=== PATIENT | female | born 1950 | race Caucasian/White ===

== ENCOUNTER 2021-12-14 20:04 | Emergency (ER) | payer OTHER, MEDICAID ==
[~2021-12-14] VITALS: Ht 162.6 cm; Wt 72.6 kg
[2021-12-14 20:10] VITALS: BP_SYST 122
--- NOTE | 2021-12-14 20:14 | NUR ---
PT SENT HERE FROM [facility] FOR MED EVAL FOR POSS PLACEMENT TO PSYCH FALILITY. PER EMT REPORT PT HAS BEEN HALLUCINATING AND IT INCREASINGLY GETTING WORST. NO OTHER COMPLAINS REPORTED. PMH;PSYCH,COPD,GERG, REPORTED STAGE 4 SACRAL STAGE ULCE PT AAO, NOT IN ANY DISTRESS. PENDING MD GARCAI
[2021-12-14 22:15] LABS: BASOPHILS # (AUTO) 0.1 K/uL (0.0-0.2); BASOPHILS % (AUTO) 1.8 % (0.0-2.0); EOSINOPHILS # (AUTO) 0.5 K/uL (0.0-0.4); EOSINOPHILS % (AUTO) 7.1 % (0.0-4.0); HEMATOCRIT 31.2 % (36-48); HEMOGLOBIN 10.8 g/dL (12.0-16.0); LYMPHOCYTES # (AUTO) 1.4 K/uL (1.0-5.5); LYMPHOCYTES % (AUTO) 18.7 % (20.5-51.5); MEAN CORPUSCULAR HEMOGLOBIN 32 pg (27-31); MEAN CORPUSCULAR HGB CONC 35 % (32-36); MEAN CORPUSCULAR VOLUME 93 fL (79.0-98.0); MONOCYTES # (AUTO) 0.5 K/uL (0.0-1.0); NEUTROPHILS % (AUTO) 65.4 % (40.0-70.0); PLATELET COUNT (AUTO) 374 K/uL (130-430); RED BLOOD CELL COUNT(AUTO) 3.36 MIL/uL (4.2-6.2); RED CELL DISTRIBUTION WIDTH 14.3 % (9.0-15.0); WHITE BLOOD COUNT (AUTO) 7.7 K/uL (4.8-10.8)
--- NOTE | 2021-12-14 22:18 | NUR ---
ER examining patient in EMS [facility].
[2021-12-14 22:33] LABS: ANION GAP 3 (5-15); CALCIUM 9.2 mg/dL (8.4-11.0); CHLORIDE 92 mmol/L (98-107); CREATININE 0.84 mg/dL (0.55-1.30); GLUCOSE 106 mg/dL (70-99); POTASSIUM 4.7 mmol/L (3.5-5.1); UREA NITROGEN, BLOOD 25 mg/dL (8-21)
[2021-12-14 22:39] LABS: ALANINE AMINOTRANSFERASE 20 U/L (12-78); ALBUMIN 2.9 g/dL (3.4-4.8); ASPARTATE AMINOTRANSFERASE 22 U/L (10-37); TOTAL BILIRUBIN 0.2 mg/dL (0.0-1.0)
[2021-12-14 22:42] LABS: ACETAMINOPHEN < 1 ug/mL (1-30)
[2021-12-14 22:43] LABS: ALCOHOL, BLOOD < 3 mg/dL (<10)
[2021-12-14 23:25] LABS: CHOLESTEROL 186 mg/dL (<200); HDL CHOLESTEROL 71 mg/dL (>55); LDL CHOLESTEROL 102 mg/dL (<100); TRIGLYCERIDES 77 mg/dL (30-150)
[2021-12-14] MEDS ORDERED: NACL 0.9% 1,000 ML IV ONE (23:45)
--- NOTE | 2021-12-15 00:30 | NUR ---
Patient to ER bed 5 to gown for evaluation. Side rails up. Report given to Caroline VELASCO.
--- NOTE | 2021-12-15 01:00 | NUR ---
# 20 gauge angiocath placed to RAC. Use of asceptic technique. Opsite placed over site. Blood return noted. Flushed with 10 cc of normal saline. No evidence of infiltration noted. Patient tolerated well.
--- NOTE | 2021-12-15 01:45 | NUR ---
Urine specimen collected and SENT TO LAB
[2021-12-15 02:57] LABS: BARBITURATE, URINE NEGATIVE (NEG <=200); BENZODIAZEPINE, URINE NEGATIVE (NEG <=150); CANNABINOID, URINE NEGATIVE (NEG <=50); COCAINE, URINE NEGATIVE (NEG <=150); METHAMPHETAMINES SCREEN,URINE NEGATIVE (NEG <=500); OPIATE, URINE NEGATIVE (NEG <=100); PHENCYCLIDINE SCREEN,URINE NEGATIVE (NEG <=25); UR TRICYCLIC ANTIDEPRESSANTS NEGATIVE (NEG <=300); URINE AMPHETAMINE NEGATIVE (NEG <=500); URINE METHADONE NEGATIVE (NEG <=200); URINE OXYCODONE SCREEN NEGATIVE (NEG <=100); URINE PROPOXYPHENE SCREEN NEGATIVE (NEG <=300)
[2021-12-15 04:11] LABS: BILIRUBIN,URINE NEGATIVE (NEGATIVE); CLARITY/URINE TURBID (CLEAR); COLOR,URINE YELLOW (YELLOW); GLUCOSE,URINE NEGATIVE (NEGATIVE); KETONES,URINE NEGATIVE (NEGATIVE); LEUKOCYTE ESTERASE ,URINE 3+ (NEGATIVE); NITRITE, URINE POSITIVE (NEGATIVE); PROTEIN URINE NEGATIVE (NEGATIVE); UROBILINOGEN,URINE 0.2 (0.2-1.0)
[2021-12-15 04:43] LABS: BLOOD, URINE TRACE (NEGATIVE)
[2021-12-15 04:46] LABS: BACTERIA,URINE FEW /HPF (None Seen)
[2021-12-15 04:47] LABS: MUCUS,URINE None Seen /LPF (None Seen)
[2021-12-15] MEDS ORDERED: cefTRIAXone 1 GM IVPB PREMIX 50 ML IV ONE (05:15)
[2021-12-15] MEDS ORDERED: NITR-85 PO (05:20)
--- NOTE | 2021-12-15 05:30 | NUR ---
turned & repositioned q2h. incontinence caree provided. no BM at this time. w/ eason catheter constantly draining cloudy urine. adequate output. eason care provided.
[2021-12-15 05:51] LABS: ANION GAP 2 (5-15); CHLORIDE 97 mmol/L (98-107); GLUCOSE 87 mg/dL (70-99); POTASSIUM 4.9 mmol/L (3.5-5.1); UREA NITROGEN, BLOOD 22 mg/dL (8-21)
--- NOTE | 2021-12-15 06:18 | NUR ---
PT IS CLEARED FOR D/C. [facility] SPOKE W/ PAT. PER APOLINAR, THE [facility] WILL CALL US AND LET US KNOW ABOUT PT GOING BACK TO THEIR FACILITY AND TRANSPO. WILL ENDORSE ACCORDINGLY.
--- NOTE | 2021-12-15 06:31 | NUR ---
[facility] PHONE# [phone]
[2021-12-15] MEDS ORDERED: LORazepam 2 MG/ML VIAL IVP ONE (06:45)
--- NOTE | 2021-12-15 07:23 | NUR ---
report given to ROD Mendez
[2021-12-15] MEDS ORDERED: DILTIAZEM HCL 60 MG TABLET PO ONE (08:00)
[2021-12-15] MEDS ORDERED: risperiDONE 1 MG TABLET (RisperDAL) PO ONE (08:00)
[2021-12-15 08:55] VITALS: BP_SYST 125
--- NOTE | 2021-12-15 08:55 | NUR ---
EMS given written and verbal discharge instructions and verbalizes understanding. Report given to STEFANIE Benitez of [facility]. Stressed the importance of f/u and to fill electronically sent prescription for uti. ER MD discussed with patient the results and treatment provided. Patient in stable condition. ID arm band removed. IV catheter removed intact and dressing applied, no active bleeding.Rx of Nitrofurantoin given. Patient educated on pain management and to follow up with PMD. Opportunity for questions provided and answered.
--- NOTE | 2021-12-16 15:28 | NUR ---
Inna at [facility] called informed of MRSA (+).
== END 2021-12-15 08:55 | disposition home or self-care (01) ==
LOC: SED 20:04
DX: F23 Brief psychotic disorder (principal); E87.1 Hypo-osmolality and hyponatremia; N39.0 Urinary tract infection, site not specified; Z88.8 Allergy status to other drugs, medicaments and biological substances; Z79.899 Other long term (current) drug therapy; Z20.822 Contact with and (suspected) exposure to COVID-19
CPT/HCPCS: 99285; 70450; 87426; 80061; 80307; 80053; 81000; 85025; 87081; 36415; 76376; 83036; 96365; 96361; 96375; 80048; G0482; J0696; J2060; J7030; G0480; G0481